=== PATIENT | male | born 1970 | race American Indian/Alaskan Native ===

== ENCOUNTER → 2022-03-26 09:44 | Outpatient (CLI) | payer OTHER, SELFPAY ==
[2022-03-26 11:04] LABS: COVID19 -Nasal RAPID Negative (Negative)
== END ==
PROVIDERS: PCP Family Medicine; Visit Provider Surgery
DX: Z20.822 Contact with and (suspected) exposure to COVID-19 (principal); Z01.812 Encounter for preprocedural laboratory examination
CPT/HCPCS: 87635; C9803

== ENCOUNTER 2022-03-27 09:53 | Day surgery (SDC) | payer OTHER, SELFPAY ==
--- NOTE | 2022-03-27 | PATH_ITS ---
[facility] Accession Number: [id number] . 01 Material submitted: . rectosigmoid junction - RECTOSIGMOID COLON POLYP X3 . 01 Diagnosis: Rectosigmoid Colon, Polyp x3, Biopsies: Hyperplastic polyps. MRV 04/01/2022 1726 Local . 01 Electronically signed: . Pretty Charlton MD, Pathologist NPI- [id number] . 01 Gross description: . RECTOSIGMOID COLON POLYP X3: Received in formalin are 3 fragment(s) of mc, soft tissue measuring 0.5 x 0.3 x 0.2 cm to 0.1 x 0.1 x 0.1 cm submitted entirely in 1 cassette(s) /CPE 03/28/2022 0820 Local . 01 Pathologist provided ICD-10: K63.5 . 01 CPT . 212699 Performed at: 01 [facility] [address] [place] [address] [address], [place], [place] [id number] MD Satya Vargas MD Phone: [phone]
[2022-03-27 10:28] VITALS: BP 139/88; PULSE 76; RESP 18; TEMP 36.5; O2SAT 98; BMI 29.8
[2022-03-27] MEDS: SODIUM CHLORIDE 0.9% 1,000 ML 70 ML IV (10:39)
--- NOTE | 2022-03-27 11:09 | PM.HP.1 ---
History of Present Illness History of Present Illness Date Patient Seen: 03/27/22 Time Patient Seen: 11:09 Chief complaint: SCREENING COLONOSCOPY Narrative: Patient is a very pleasant 51-year-old male who presented for screening colonoscopy. He denies prior history of colonoscopy. Denies family history of colon cancer colon polyps. Denies rectal bleeding. Patient History Medical History Chronic GERD History of prediabetes Lower back pain Family & Social History Social History: household members spouse Tobacco & Substance use: Tobacco type smokeless tobacco Smoking Status Current every day smoker alcohol intake never Substance Use Type marijuana Meds Home Medications and Allergies Home Medications Medication Instructions Recorded Confirmed Type meloxicam 15 mg tablet See Rx Instructions .ROUTE .COMPLEX 03/27/22 03/27/22 History metformin 500 mg tablet,extended See Rx Instructions .ROUTE .COMPLEX 03/27/22 03/27/22 History release 24 hr omeprazole 20 mg capsule,delayed See Rx Instructions .ROUTE .COMPLEX 03/27/22 03/27/22 History release Allergies Allergy/AdvReac Type Severity Reaction Status Date / Time No Known Drug Allergies Allergy Verified 03/27/22 10:20 Review of Systems Review of Systems ROS: Yes All systems reviewed with the patient and are negative except as otherwise documented Exam Vital Signs (past 8 hours): - 03/27/22 10:28 Temperature 97.7 F Pulse Rate 76 Respiratory Rate 18 Blood Pressure 139/88 Pulse Oximetry 98 Oxygen Delivery Method Room Air Const General: cooperative, healthy appearing, comfortable, well developed and No in distress HENMT Head: normocephalic and atraumatic Resp Effort & Inspection: normal respiratory effort and able to speak in complete sentences Auscultation: clear to auscultation bilaterally Cardio Rate: regular rate Rhythm: regular rhythm GI Palpation: soft Extrem General: no clubbing, cyanosis or edema Assessment & Plan Assessment & Plan narrative: 1. Colon cancer screening Colonoscopy today, further recommendations to follow Time Spent With Patient Critical Care time: I spent a total of [] minutes of critical care time on this patient's care today; this time is exclusive of procedural time.
--- NOTE | 2022-03-27 11:31 | P.OP.COLON_ITS ---
Operative Date/Time/Diagnoses Date of procedure: 03/27/22 Time of procedure: 11:18 Procedure Notes Procedure in detail: Surgeon: Yee Serrano DO Procedure: Colonoscopy with polypectomy Preoperative diagnosis: 1. Colon cancer screening, no prior colonoscopy Postoperative diagnosis: 1. Three 2-3 mm polyps in the rectosigmoid removed with cold forceps 2. Diverticulosis is distal transverse, descending, and sigmoid colon 3. Grade 1 internal hemorrhoids noted on retroflexion Medications: Monitored anesthesia care Preanesthesia Assessment An H and P was performed/updated and the Px?s ASA class is 1. The procedure was discussed in detail with the patient. The potential risks and complications including infection, bleeding, missed lesions, perforation, need for surgery in case of perforation, prolonged hospital stay, and were explained. A brief question and answer period was allotted and once all questions were answered, informed consent was obtained. The patient was brought back to the procedure room and placed on standard monit oring. The patient?s vital signs were monitored continuously throughout the entire procedure. Prior to starting, a timeout was performed to confirm the patient?s identity, allergies, medications, and procedure. Three small polyps measuring 2-3 mm in size were found in the rectosigmoid junction which were removed with Jumbo forceps. Blood loss was minimal. Diverticulosis was noted in the distal transverse, descending and sigmoid colon. Grade 1 internal hemorrhoids noted on retroflexion. Otherwise unremarkable exam. Procedure in detail The patient was placed in left lateral decubitus position and once adequate sedation was obtained a ABDI was performed. The digital rectal examination did not reveal any palpable lesions. The tip of the colonoscope was placed in the anal canal and advanced without difficulty all the way to the cecum which was identified by the appendiceal orifice and the ileocecal valve. Careful examination of all silva of the colon was performed with irrigation of any residual stool. The patient tolerated the procedure well and will be brought back to the recovery area to be discharged once criteria are met. The prep was judged to be good/excellent and adequate to identify polyps less than 5 mm. The withdrawal time was 10min. Complications There were no complications and estimated blood loss was minimal. Recommendations: High-fiber diet Continue outPx medications Follow up pathology results Repeat colonoscopy after pathology results are reviewed An emergency contact number was given to the patient for any complications related to the procedure
[2022-03-27 11:34] VITALS: BP 131/92; PULSE 80; RESP 16; TEMP 36.4; O2SAT 97
[2022-03-27 11:38] VITALS: BP 132/87; PULSE 88; RESP 19; O2SAT 94
--- NOTE | 2022-03-27 11:48 | SUR.PHASEI ---
Handoff to Jamie Jorgensen RN
== END 2022-03-27 12:10 | disposition home or self-care (01) ==
PROVIDERS: PCP Family Medicine; Referring Provider Student in an Organized Health Care Education/Training Program; Visit Provider Student in an Organized Health Care Education/Training Program
PROC: 0DJD8ZZ Inspection of Lower Intestinal Tract, Via Natural or Artificial Opening Endoscopic (ICD-10-PCS; CPT 45378; principal; 2022-03-27 11:30)
DX: Z12.11 Encounter for screening for malignant neoplasm of colon (principal); K57.30 Diverticulosis of large intestine without perforation or abscess without bleeding; K64.0 First degree hemorrhoids; K63.5 Polyp of colon
CPT/HCPCS: 45380; J2704

== ENCOUNTER → 2025-08-12 14:11 | Outpatient (CLI) | payer OTHER, SELFPAY ==
--- NOTE | 2025-08-12 14:12 | DI.NM.S_ITS ---
PROCEDURE: NM MALRON PERF SPECT REST & STR Rest and exercise myocardial perfusion SPECT with gated imaging and ejection fraction RADIOPHARMACEUTICAL: 26.4 mCi Tc-99m sestamibi IV at rest and 24.8 mCi Tc-99m sestamibi IV at peak exercise. A 2 day-protocol was performed. INDICATIONS: High risk CAD with LUCIO TECHNIQUE: Radiopharmaceutical was injected at peak stress test, and also at rest. SPECT images were obtained. SPECT myocardial perfusion images were displayed in short axis, horizontal long axis, and vertical long axis views. Gated images were reviewed using [employer] software. COMPARISON: None. CARDIAC STRESS: A standard Sandeep treadmill exercise tolerance test was performed by the patient under the supervision of an attending staff. The patient exercised for 7 minutes and 31 seconds; 10.1 METS; functional aerobic impairment (ALEXANDRA) is +24%. Hemodynamic data: There is normal blood pressure and heart rate response to exercise stress. Patient achieved 89% of maximum predicted heart rate at peak exercise. Peak blood pressure 162/90. Symptoms: Patient denied chest pain during exercise. EKG: Rest ECG sinus rhythm 62 bpm. Exercise ECG sinus tachycardia no ST segment changes or arrhythmia. FINDINGS: Raw data: There is good myocardial labeling by radiotracer. No significant motion artifacts. Left ventricle function: Gated images demonstrate normal left ventricle wall thickening. No segmental wall motion abnormality. No transient ischemic dilation; TID is 0.94 (normal less than 1.3). The left ventricle resting end-diastolic volume is 147 mL. Left ventricle stress ejection fraction is 69%; normal values are above 45%. Myocardial perfusion: There is normal distribution of activity in the left and right ventricular myocardium. No fixed or reversible perfusion defects. IMPRESSION: Low risk study. No evidence of exercise-induced ischemia on ECG or SPECT imaging. Dilated left ventricle based on calculated left ventricular end-diastolic volume with normal systolic function. Normal hemodynamic response to exercise. Reduced exercise capacity. Dictated by: Mary Phillips D.O. on 08/15/2025 at 17:16 Approved by: Mary Phillips D.O. on 08/15/2025 at 17:20
== END ==
LOC: NUCM 14:11
PROVIDERS: Referring Provider Family Medicine; Visit Provider Family Medicine
DX: Z01.89 Encounter for other specified special examinations (principal); I25.10 Atherosclerotic heart disease of native coronary artery without angina pectoris; R06.09 Other forms of dyspnea
CPT/HCPCS: 78452; 93017; A9502